=== PATIENT | male | born 1985 | race African-American/Black ===

== ENCOUNTER 2021-01-04 12:46 | Emergency (ER) | payer OTHER ==
[~2021-01-04] VITALS: Ht 172.7 cm; Wt 108.9 kg
[2021-01-04 12:50] VITALS: BP 163/99
--- NOTE | 2021-01-04 13:01 | NUR ---
Dr. Russell assessed patient in triage room prior to bed assignment; no code brain activated at this time.
--- NOTE | 2021-01-04 13:01 | NUR ---
Patient ambulated to bed 12, steady/even gait.
--- NOTE | 2021-01-04 13:05 | NUR ---
35 y/o M coming in from home with c/c right sided facial droop x 1 day. Pt presents A&Ox4, ambulatory and states yesterday at 12PM, he was having lunch and began experiencing right sided facial crampness that began at his chin. Pt reports cramp was intermittent and lasted 30 seconds. Pt reports that the facial droop progressively worsen, radiating to above his eyebrow in the next 1.5 hrs. Pt states he is unable to smile or close right eye and states associated watery eyes and "slight numbness" to the right side of his face. Pt also states associated mild, right ear pain. Pt denies numbness/tingling complaints to other extremities, dizziness, blurry vision, headache. 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 Pt placed onto awake overnight monitor. Lung sounds CTA. Bed locked in lowest position, side rails x 1. PMH/Meds: Denies Allergies: "Seasonal allergies" Sx: R ACL sx 2005
[2021-01-04] MEDS ORDERED: PRED20TA5 PO (13:22)
[2021-01-04] MEDS ORDERED: VALA1TAB40 PO (13:22)
[2021-01-04 13:38] VITALS: BP 163/99
--- NOTE | 2021-01-04 13:38 | NUR ---
Patient discharged with v/s stable. Written and verbal after care instructions given and explained. Patient alert, oriented and verbalized understanding of instructions. Ambulatory with steady gait. All questions addressed prior to discharge. ID band removed. Patient advised to follow up with PMD. Rx of PREDNISONE, VALACYCLOVIR given. Patient educated on indication of medication including possible reaction and side effects. Opportunity to ask questions provided and answered.
== END 2021-01-04 13:38 | disposition home or self-care (01) ==
LOC: MED 12:46
DX: G51.0 Bell's palsy (principal)
CPT/HCPCS: 99283